=== PATIENT | male | born 1940 | race Caucasian/White ===

== ENCOUNTER 2020-11-11 20:10 | Observation (INO) | payer MEDICARE, SELFPAY ==
--- NOTE | ~2020-11-11 | CT_ITS ---
EXAMINATION: CT chest abdomen pelvis w con EXAM DATE: 11/11/2020 21:53 INDICATION: Trauma, chest and abdominal pain. TECHNIQUE: Spiral CT of the chest, abdomen and pelvis was performed following intravenous injection o f 100 mL Omnipaque 350. Axial, coronal and sagittal images were reviewed. Coronal maximum intensity pixel images of chest reviewed. The dose-length product (DLP) for this examination was 1160.10 mGy- cm. The exposure was tailored according to patient size (auto mA exposure control), and iterative re construction (ASIR) was used as additional dose reduction technique. There is no prior study for olu porter. FINDINGS: CHEST: Basilar and dependent subsegmental atelectasis. There are no pleural or pericardial effusion s. Tracheobronchial tree is patent. There is no mediastinal, hilar or axillary lymphadenopathy. There is no pneumothorax. Heart normal in size. There is mild to moderate coronary arterial calc ification, arterial sclerosis. ABDOMEN PELVIS: The liver, spleen, adrenal glands and pancreas are unremarkable. There are gallstone s within an otherwise unremarkable gallbladder. No evidence of obstructive biliary disease. Portal and splenic veins are patent. Kidneys enhance symmetrically. There is no hydronephrosis. There is a 4 cm cyst in the midpole of the left kidney. The prostate is unremarkable. The bladder is unremark able. There is no retroperitoneal or pelvic lymphadenopathy. There is large left inguinal hernia con taining nonobstructed descending/sigmoid colon. The appendix is not positively visualized. There is no pericecal inflammatory change to suggest appe ndicitis. The stomach and small bowel are unremarkable. There is moderate scattered colonic diverti culosis. There is no adjacent inflammatory change to suggest diverticulitis. There is expected amoun t of colonic stool. No free intraperitoneal gas. There are acute mildly displaced right 5th-9th r ib fractures laterally. There are acute nondisplaced right 8th-10th rib fractures posteriorly. There is moderate upper lumbar levoscoliosis. IMPRESSION: 1. Acute right 5th-10th rib fractures. 2. Large left inguinal hernia containing nonobstructed sigmoid colon. 3. Moderate upper lumbar levoscoliosis. 4. Moderate scattered colonic diverticulosis. 5. Cholelithiasis. 6. Bilateral subsegmental atelectasis. Reviewed, dictated and finalized at location A. ENGINEER
--- NOTE | ~2020-11-11 | XR_ITS ---
EXAMINATION: XR elbow RT min 3V EXAM DATE: 11/11/2020 21:46 INDICATION: Initial encounter following injury, with pain of the right elbow. TECHNIQUE: Right elbow frontal, lateral with flexion, and oblique projections obtained and reviewed. There is no prior study for comparison. FINDINGS: There is acute nondisplaced right radial head closed posttraumatic fracture. This finding h as been indicated, marked on the examination for review, clinical correlation. There is an elbow asia int hemarthrosis. No dislocation. IMPRESSION: Acute right radial head fracture. Reviewed, dictated and finalized at location A. ER AND CELLOPHANER MACHINE
--- NOTE | ~2020-11-11 | CT_ITS ---
EXAMINATION: CT brain wo con, CT cervical spine wo con EXAM DATE: 11/11/2020 20:41 INDICATION: Fall, head injury. TECHNIQUE: Spiral CT of the head was performed without contrast. Axial, coronal and sagittal images were reviewed. Spiral CT of the cervical spine was performed without contrast. Axial images were rev iewed. Coronal and sagittal reformatted images were also reviewed. The dose-length product (DLP) fo r this examination was 1362.00 (accession [id number]), 237.08 (accession [id number]) mGy-cm. The exposure was tailored according to patient size, and iterative reconstruction (ASIR) was used as additional dose reduction technique. There is no prior study for comparison. FINDINGS: HEAD CT: There is no acute intraparenchymal hemorrhage. No evidence of intraparenchymal brain mass l esion. No evidence of acute infarction. There is mild periventricular and subcortical hypodensity, n onspecific but probably related to small vessel ischemic disease. There is moderate prominence of t he sulci and ventricles related to cerebral atrophy. There is intracranial carotid arteriosclerosis . There is no mass effect or midline shift. There is no obstructive hydrocephalus suspected. There are no extra-axial collections. There are no acute calvarial fractures. Patient has had bilateral ocular lens surgery. Soft tissue is unremarkable. Mild mucoperiosteal thickening. CERVICAL CT: There is no evidence of acute cervical fracture. The odontoid process is intact. Pre- dens space is normal. Prevertebral soft tissue is normal. There are no soft tissue abnormalities id entified. There is no disc space widening or traumatic vertebral body subluxation suspected. Modera te to severe loss of the disc heights at C5-6 and 6-7, moderate at C4-5. There is overall moderate ce rvical arthropathy. A detailed level by level evaluation of spondylosis can be added as addendum if requested. IMPRESSION: 1. No acute intracranial findings or cervical fracture. 2. Age-related intracranial findings. 3. Cervical spondylosis. Reviewed, dictated and finalized at location A. DE POLISHER IMPRESSION: 1. No acute intracranial findings or cervical fracture. 2. Age-related intracranial findings. 3. Cervical spondylosis.
--- NOTE | ~2020-11-11 | XR_ITS ---
EXAMINATION: [id number] EXAM DATE: 11/11/2020 20:54 INDICATION: Initial encounter following injury, with pain of the right ribs. TECHNIQUE: Frontal projection of the upper right ribs, frontal projection of the lower right ribs, ob lique projection of the right ribs, frontal and lateral chest x-ray(s) for interpretation. There is no prior study for comparison. FINDINGS: There are acute right 5th through 9th rib fractures with mild displacement. Acute posttraum atic findings. No confluent consolidation, pneumothorax or pleural effusion suspected. There is aorti c arteriosclerosis. Mild to moderate thoracic spondylosis. IMPRESSION: 1. Right 5th-9th mildly displaced acute rib fractures. Reviewed, dictated and finalized at location A. CTOR OF PROFESSIONAL SERVICES
[2020-11-11 20:10] VITALS: BP 145/74; PULSE 75; RESP 16; TEMP 36.5; O2SAT 97
[2020-11-11 20:28] LABS: Basophils Percent Auto 0.4 % (0.2-1.2); Eosinophils Absolute Auto 0.3 K/mm3 (0-0.3); Eosinophils Percent Auto 3.8 % (0-4.4); Hematocrit 36.3 % (42.0-52.0); Hemoglobin 12.4 g/dL (14.0-18.0); Immature Granulocyte Absolute 0.05 K/mm3 (0.00-0.031); Immature Granulocyte Percent A 0.7 % (0-0.5); Lymphocytes Absolute Auto 1.96 K/mm3 (0.9-3.2); Lymphocytes Percent Auto 26.5 % (18.3-44.2); Mean Corpuscular HGB Conc 34.2 g/dl (32-36); Mean Corpuscular Hemoglobin 34.6 pg (26-34); Mean Corpuscular Volume 101.4 fl (80-100); Mean Platelet Volume 8.7 fl (7.4-10.4); Monocytes Absolute Auto 0.6 K/mm3 (0.1-0.6); Monocytes Percent Auto 8.5 % (2.6-8.5); Neutrophils Absolute Auto 4.5 K/mm3 (1.3-6.7); Neutrophils Percent Auto 60.1 % (45.5-73.1); Platelet Count Result 144 k/mm3 (150-375); Red Blood Count 3.58 M/mm3 (4.6-6.20); Red Cell Distribution Width 12.8 % (11.5-14.5); White Blood Count 7.4 K/mm3 (4.5-10.0)
[2020-11-11 20:54] VITALS: BP 115/77; PULSE 65
[2020-11-11 20:55] VITALS: BP 107/78; PULSE 76
--- NOTE | 2020-11-11 21:06 | ED.FALL ---
HPI - Fall General Chief Complaint: Fall Stated Complaint: fall/ rib pain Time Seen by Provider: 11/11/20 20:57 Source: RN notes reviewed History of Present Illness HPI Narrative: Patient presents emergency department from home for a fall. Patient states he had gotten up and was turning when he let go of his walker and fell landing on his right side of his chest he notes pain in his right chest worse with inspiration also notes skin tears over his right elbow and hand states he is unsure of his last tetanus shot denies being on any blood thinners denies striking his head or any loss of consciousness denies any fevers or chills abdominal pain nausea vomiting or any other symptoms Related Data Home Medications Medication Instructions Recorded Confirmed carbidopa ER 50 mg-levodopa 200 mg 1 tablet PO QID 10/05/19 tablet,extended release hydrochlorothiazide 12.5 mg tablet 12.5 mg PO DAILY 10/05/19 quetiapine 25 mg tablet 25 mg PO DAILY tablet 10/05/19 ropinirole 1 mg tablet 1 mg PO QID tablet 10/05/19 Allergies Allergy/AdvReac Type Severity Reaction Status Date / Time No Known Allergies Allergy Unverified 07/12/19 06:42 Review of Systems Review of Systems: Narrative: Gen.: Denies fevers or chills Eyes: Denies eye pain or visual change ENT: Denies congestion Respiratory: Denies shortness of breath or cough CV: Reports chest pain denies palpitations GI: Denies abdominal pain nausea, emesis or diarrhea Musculoskeletal: See HPI Neuro: Denies numbness, tingling, weakness or focal weakness Skin: Reports abrasions Except as documented, all other systems reviewed and negative PMFSH Past Medical History Medical History (Updated 11/11/20 @ 22:52 by Parish Lord DO) Parkinsons disease Family History Family History (Updated 03/08/18 @ 12:40 by DOCTOR UNKNOWN) Sibling Family history of cardiovascular disease Social History Social History Smoking status: Never smoker Second hand tobacco smoke exposure: No Alcohol intake: never Exam Narrative: Exam Narrative: APPEARANCE: Well appearing, no apparent distress, well-nourished. HEENT: normocephalic atraumtaic. No facial tenderness EYES: PERRL NECK: C-collar present supple. No midline tenderness to palpation. RESPIRATORY: No respiratory distress. Clear to auscultation bilaterally CARDIOVASCULAR: Regular rate and rhythm without murmurs rubs or gallops. Chest: Tender palpation of the right anterior lateral chest wall ABDOMINAL: Soft, nontender, nondistended, no rebound or guarding MUSCULOSKELETAl: Moves all extremities. No tenderness to palpation of left upper extremity and bilateral lower extremities. No clubbing cyanosis or edema tender palpation of her right elbow full range of motion no tenderness right wrist or elbow radial pulse 2+ neurovascular intact Back: No midline thoracic or lumbar tenderness to palpation Pelvis: Stable, nontender NEURO: Awake and alert ?3. Follows commands. Speech normal. No focal deficits. SKIN:: Warm, dry. Superficial skin tears of right posterior elbow right dorsal hand and wrist no active bleeding or signs of infection Course Course Emergency Course: Patient states he currently resides in assisted living normally walks with a walker Discussed with Dr. Barrios presentation work-up agrees with admission at this time Discussed with patient and family results of workup and diagnosis. Discussed need for admission. Patient and family understand and agree to current treatment plan Vital Signs Vital signs: Vital Signs Temperature 97.7 F 11/11/20 20:10 Pulse Rate 75 11/11/20 20:10 Respiratory Rate 16 11/11/20 20:10 Blood Pressure 145/74 H 11/11/20 20:10 Pulse Oximetry 97 11/11/20 20:10 Temperature 97.7 F 11/11/20 20:10 Pulse Rate 83 11/11/20 21:15 Respiratory Rate 16 11/11/20 21:15 Blood Pressure 136/91 H 11/11/20 21:15 Pulse Oximetry
[2020-11-11 21:15] VITALS: BP 136/91; PULSE 83; RESP 16; O2SAT 96
[2020-11-11 21:18] LABS: Add Urine Microscopic? YES; Appearance Urine Clear (Clear); Bilirubin Urine Negative (Negative); Blood Urine Negative (Negative); Color Urine Yellow (Yellow); Glucose Urine UA Negative (Negative); Ketones Urine Trace mg/dL (Negative); Leukocyte Esterase Ur Negative LEU/UL (Negative); Mucus Urine Rare /lpf; Nitrate Urine Negative (Negative); Protein Urine Negative (Negative); Specific Grav Ur 1.015 (1.001-1.035); Urobilinogen Urine Negative mg/dL (<2.0); WBC Urine 0-3 /hpf
[2020-11-11 21:23] LABS: Albumin Level 3.9 g/dL (3.5-5.1); Alkaline Phosphatase 105 U/L (38-126); Anion Gap 4 mmol/L (8-16); Aspartate Amino Transferase 30 U/L (17-59); Bilirubin,Total 0.5 mg/dL (0.2-1.3); Blood Urea Nitrogen 31 mg/dL (9-20); Calcium 9.1 mg/dL (8.4-10.2); Carbon Dioxide 33 mmol/L (22-30); Chloride 102 mmol/L (98-107); Estimated CRCL calculation 50 ml/min; Estimated Glomerular Filt Rate > 60; Glucose 93 mg/dL (75-110); Potassium 4.2 mmol/L (3.4-5.0); Sodium 139 mmol/L (137-145)
[2020-11-11 21:24] LABS: Alanine Aminotransferase < 6 U/L (4-50)
[2020-11-11] MEDS: TETANUS,DIPHTHERIA,AC PERTUSSIS ADULT (0.5 ML) BOOSTRIX IM (21:56)
--- NOTE | 2020-11-11 23:01 | PM.IMHP ---
H&P: HPI History of Present Illness Date/Time: 11/11/20 23:01 Chief complaint: Multiple right rib fractures, Narrative: Jg Carrera is a 80 year old male from assisted living care facility [facility] with past medical history of Parkinson's disease who presents to the ED with complaints of fall, chest pain, right elbow pain. Was using his walker today and had a mechanical fall. His daughter was bedside in the ER. Patient had just received pain medication and could not provide much history. He lives in assisted living facility in [facility] in the unit that may have more nursing care than a typical assisted living facility. He otherwise is independent with a walker and has nursing help with medications. Patient endorses right chest pain and elbow pain and left face pain. He denies fever, chills, nausea, vomiting, diarrhea, lightheadedness, dizziness. In the ED: CT head and neck negative, chest x-ray right 5th to 10th mildly displaced rib fractures, acute right hip radial head fracture. Bilateral subsegmental atelectasis. Patient was given incentive spirometer and pain control. EKG showed normal sinus rhythm rate 73. Patient admitted for observation for probable rehab placement and pain control for acute rib fractures and nondisplaced humeral head fracture. Review of Systems Review of Systems: Narrative: Constitutional: No Fever, No Chills, No Night Sweats, No Fatigue, No Malaise ENT/Mouth: No Hearing Changes, No Ear Pain, No Nasal Congestion, No Sinus Pain, No Hoarseness, No sore throat, No Rhinorrhea, No Swallowing Difficulty. Eyes: No Eye Pain, No Redness, No Vision Changes Cardiovascular: No Palpitations, No Dyspnea on Exertion, No Orthopnea, No Claudication, No Edema. Endorses chest pain. Respiratory: No Cough, No Sputum, No Wheezing. Endorses dyspnea. Gastrointestinal: No Nausea, No Vomiting, No Diarrhea, No Constipation, No Abdominal Pain, No Heartburn, No Hematochezia, No Melena Genitourinary: No Dysuria, No Urinary Frequency, No Hematuria, No Urinary Incontinence, No Urgency Musculoskeletal: Pain in many joints after fall. Skin: No Skin Lesions, No Pruritis, No Hair Changes Neuro: No Weakness, No Numbness, No Paresthesias, No Loss of Consciousness, No Syncope, No Dizziness. Endorses mild headache. Psych: No Anxiety/Panic, No Depression, No Insomnia Heme: No Bruising, No Bleeding Lymph: No Adenopathy Endocrine: No Polyuria, No Polydipsia, No Temperature Intolerance [facility] Past Medical History Medical History Constipation Essential hypertension Insomnia Iron deficiency anemia Parkinsons disease Surgical History Surgical History History of bilateral knee replacement History of right shoulder replacement Family History Family History Sibling Family history of cardiovascular disease Social History Social History Social History: Daughter lives locally Smoking status: Never smoker Second hand tobacco smoke exposure: No Alcohol intake: never Substance use: never Living arrangements: assisted living Additional living arrangements comments: [facility] Occupation/Education: retired Gender identity (if verbalized by the patient): Male Spiritual care concerns: No Meds Home Medications and Allergies Home Medications Medication Instructions Recorded Confirmed Type carbidopa ER 50 mg-levodopa 200 mg 1 tablet PO QID 10/05/19 History tablet,extended release hydrochlorothiazide 12.5 mg tablet 12.5 mg PO DAILY 10/05/19 History quetiapine 25 mg tablet 25 mg PO DAILY tablet 10/05/19 History potassium chloride 20 mEq 20 meq PO DAILY #30 tablet 05/15/20 Rx tablet,extended release acetaminophen 650 mg PO Q12H 11/12/20 11/12/20 Hi
--- NOTE | 2020-11-11 23:03 | PC.NURSE ---
pt does not wish to use sling at this time. states rib less painful if arm propped on pillow
--- NOTE | 2020-11-11 23:14 | PC.NURSE ---
Pt's daughter Kaitlin Pritchett left her number for any questions on admission. [phone]
[2020-11-11 23:23] VITALS: BP 105/86; PULSE 79; RESP 16
[2020-11-11 23:26] VITALS: O2SAT 97
[2020-11-12 00:14] VITALS: BP 106/67; PULSE 81; RESP 14; O2SAT 96
--- NOTE | 2020-11-12 00:25 | ADMGEN ---
This patient, Jg Carrera, was admitted to Medical Room 342-01. Patient/family oriented to hospital policies and general routines including ID bracelet, bed and alarms, visiting hours, pain management, procedures, bathroom and other care routines, personal items, smoking policy, room service/diet, and visiting hours. Information on how to activate the Rapid Response Team has been discussed. Patient/Family are encouraged to report perceived risks to care and to ask questions if they do not understand what they are told or what they should do.
[2020-11-12 00:56] VITALS: BMI 23.8
[2020-11-12] MEDS: HYDROcodone/acetaminophen (*CRX) 5-325 MG TABLET 1 TAB PO ×4 (00:58→20:07)
[2020-11-12 06:00] VITALS: BP 143/90; PULSE 63; RESP 12; TEMP 36.6; O2SAT 99
[2020-11-12] MEDS: FERROUS SULFATE 324 MG TABLET PO (09:35)
[2020-11-12] MEDS: FAMOTIDINE 20 MG TABLET PO (09:35)
[2020-11-12] MEDS: DOCUSATE SODIUM 100 MG CAPSULE PO ×2 (09:35→17:25)
[2020-11-12] MEDS: CYANOCOBALAMIN 1,000 MCG TABLET 1000 MCG PO (09:35)
[2020-11-12] MEDS: POTASSIUM CHLORIDE 20 MEQ TABLET.ER PO (09:35)
[2020-11-12] MEDS: CARBIDOPA/LEVODOPA 25/100 MG CR TABLET 2 TABLET PO ×2 (09:35→17:24)
[2020-11-12] MEDS: rOPINIRole HCL 1 MG TABLET 4 MG PO ×4 (09:36→20:07)
[2020-11-12] MEDS: QUEtiapine FUMARATE 25 MG TABLET 50 MG PO (09:36)
[2020-11-12] MEDS: SENNOSIDES 8.6 MG TABLET PO ×2 (09:36→17:25)
[2020-11-12] MEDS: hydroCHLOROthiazide 12.5 MG CAPSULE PO (09:36)
[2020-11-12] MEDS: SERTRALINE HCL 25 MG TABLET PO (09:36)
--- NOTE | 2020-11-12 11:59 | PM.CNOR ---
Assessment and Plan Additional Plan Patient has a nondisplaced fracture of the right radial head. This will be treated nonsurgically. We will place the patient into an arm sling. He may move the fingers and wrist as tolerated. Patient was advised he is not use the hand for daily activities such as feeding or bathing at this point. Absolutely no weight-bearing on the right arm at this point. This fracture will take about 6-8 weeks to heal. There is no treatment needed for his rib fractures. These will heal on their own as well. Patient may be discharged when medically ready. He can follow up with us in approximately 10 days. History of Present Illness HPI Consult date: 11/12/20 Chief complaint: Multiple right rib fractures, Narrative: 80y/o who tripped over a walker yesterday. He is brought to the emergency room complaining of pain in the right elbow in the right ribs. X-rays right elbow were taken showing nondisplaced fracture of the radial head. No other abnormalities noted. He did have a CT done of his chest which showed multiple rib fractures on the right side as well. Patient is complaining of pain to the right elbow. He is having no pain or symptoms in the right wrist or the right shoulder. [facility] Past Medical History Medical History Constipation Essential hypertension Insomnia Iron deficiency anemia Parkinsons disease Surgical History Surgical History History of bilateral knee replacement History of right shoulder replacement Family History Family History Sibling Family history of cardiovascular disease Social History Social History Social History: Daughter lives locally Smoking status: Never smoker Second hand tobacco smoke exposure: No Alcohol intake: never Substance use: never Living arrangements: assisted living Additional living arrangements comments: [facility] Occupation/Education: retired Gender identity (if verbalized by the patient): Male Spiritual care concerns: No Meds Home Medications and Allergies Home Medications Medication Instructions Recorded Confirmed Type carbidopa ER 50 mg-levodopa 200 mg 2 tablet PO BID 10/05/19 11/12/20 History tablet,extended release hydrochlorothiazide 12.5 mg tablet 12.5 mg PO DAILY 10/05/19 11/12/20 History quetiapine 25 mg tablet 25 mg PO QPM tablet 10/05/19 11/12/20 History potassium chloride 20 mEq 20 meq PO DAILY #30 tablet 05/15/20 11/12/20 Rx tablet,extended release acetaminophen 650 mg PO Q12H 11/12/20 11/12/20 History cholecalciferol (vitamin D3) 25 mcg PO QMWF 11/12/20 11/12/20 History [Vitamin D3] cyanocobalamin (vitamin B-12) 1,000 mcg PO DAILY 11/12/20 11/12/20 History [Vitamin B-12] docusate sodium 100 mg PO BID 11/12/20 11/12/20 History famotidine 20 mg PO DAILY 11/12/20 11/12/20 History ferrous sulfate 325 mg PO DAILY 11/12/20 11/12/20 History melatonin 2 mg PO HS PRN 11/12/20 11/12/20 History quetiapine 50 mg PO BID 11/12/20 11/12/20 History ropinirole 4 mg PO QID 11/12/20 11/12/20 History sennosides [senna] 8.6 mg PO BID 11/12/20 11/12/20 History sertraline 25 mg PO DAILY 11/12/20 11/12/20 History Allergies Allergy/AdvReac Type Severity Reaction Status Date / Time No Known Allergies Allergy Verified 11/12/20 00:55 Vital Signs Vital Signs - 24 hr 11/11/20 20:10 11/11/20 20:54 11/11/20 20:55 Temperature 36.5 C Pulse Rate 75 65 76 Respiratory Rate 16 Blood Pressure 145/74 H 115/77 107/78 Pulse Oximetry 97 11/11/20 21:15 11/11/20 23:23 11/11/20 23:26 Temperature Pulse Rate 83 79 Respiratory Rate 16 16 Blood Pressure 136/91 H 105/86 Pulse Oximetry 96 97 11/12/20 00:14 11/12/20 06:00 Temperature 36.6 C Pulse Ra
--- NOTE | 2020-11-12 12:10 | PM.IMPN ---
Progress Note: A&P Assessment and Plan (1) Multiple fractures of ribs, right side, initial encounter for closed fracture: Code(s): S22.41XA - Multiple fractures of ribs, right side, initial encounter for closed fracture Status: Acute Assessment and Plan: pain control: Tylenol, [place] supportive care, patient's fractures are nonsurgical incentive spirometer q.1 hour while awake F/u with PCP (2) Closed fracture of head of right radius: Qualifiers: Encounter type: initial encounter Fracture alignment: nondisplaced Qualified Code(s): S52.124A - Nondisplaced fracture of head of right radius, initial encounter for closed fracture Code(s): S52.121A - Displaced fracture of head of right radius, initial encounter for closed fracture Status: Acute Assessment and Plan: closed nondisplaced fracture of right radial head. Orthopedic Surgery consulted from ED. Appreciate recommendations Supportive care. Patient will need Sling. No weight-bearing on the right arm at this point per Ortho PT and OT to evaluate and treat Plan is to discharge back to [facility], likely tomorrow pending covid testing (for placement) F/u with Ortho in 10 days (3) Avulsion of skin of right forearm: Qualifiers: Encounter type: initial encounter Qualified Code(s): S51.801A - Unspecified open wound of right forearm, initial encounter Code(s): S51.801A - Unspecified open wound of right forearm, initial encounter Status: Acute Assessment and Plan: -supportive care Additional Plan # other chronic conditions Parkinson's disease: Continue Sinemet, Seroquel, Requip, Zoloft hypertension: BP 140s sys. Continue hydrochlorothiazide chronic iron deficient anemia: Continue ferrous sulfate constipation: Continue docusate, senna GERD: Continue Pepcid supplements vitamin-D, vitamin B12 insomnia: Continue melatonin p.r.n. Subjective Date/time seen: 11/12/20 12:10 Interval history: Patient is a 80 yo M with history of Parkinsons, ELLIOT, HTN who is seen in follow up for right radial fracture and multiple rib fractures after sustaining a fall at his [place]. Patient states he feels okay today. He denies any pain with out movement of his right arm/hand. Pain gets slightly worse in certain positions. He reports full sensation in right arm/hand distal to facture. No other complaints. Denies f/c/s, dizziness, lightheadedness, cp/palpitations, sob/cough, n/v/d/c, abd pain, dysuria, calf pain/swelling. Review of Systems Review of Systems: All systems reviewed & are unremarkable except as noted in HPI and below Exam Narrative: Exam Narrative: General: Patient resting supine in bed in no acute distress. Elderly gentlemen. HEENT: Normocephalic, EOMI, oral mucosa moist. Cardiovascular: Rate and rhythm are regular. No notable murmur, rub, or gallop. Respiratory: Lungs clear to auscultation anterolateral lung ledesma. Non-labored breathing. Abdomen: Soft, non-tender, non-distended, bowel sounds present. Extremities: Peripheral pulses intact. No edema. NVI B/l UE. avulsion of skin noted with tegaderm placed over skin tear distal upper extremity; surrounding ecchymoses noted. Neuro: No focal neurological deficits. Speech is clear. Objective Data Vital Signs Vital Signs: Last Vital Signs Temp 97.9 F 11/12/20 06:00 Pulse 63 11/12/20 06:00 Resp 12 11/12/20 06:00 BP 143/90 H 11/12/20 06:00 Pulse Ox 99 11/12/20 06:00 Intake/Output Intake/Output: Intake & Output 11/09/20 11/10/20 11/11/20 11/12/20 23:59 23:59 23:59 23:59 Intake Total 100 240 Output Total 850 Balance 100 -610 Meds/Results Medications: Active Medications Generic Name Dose Route Start Last Admin Trade Name Freq PRN Reason Stop Dose Admin Acetaminophen 650 mg 11/12/20 07:52
[2020-11-12 14:00] VITALS: BP 120/58; PULSE 72; RESP 16; TEMP 36.5; O2SAT 96
[2020-11-12] MEDS: QUEtiapine FUMARATE 25 MG TABLET 75 MG PO (17:25)
[2020-11-12 19:45] VITALS: BP 115/77; PULSE 86; RESP 14; TEMP 36.9; O2SAT 96
[2020-11-13 05:49] VITALS: BP 115/67; PULSE 71; RESP 14; TEMP 36.8; O2SAT 97
[2020-11-13 06:23] LABS: Anion Gap 3 mmol/L (8-16); Blood Urea Nitrogen 22 mg/dL (9-20); Calcium 8.7 mg/dL (8.4-10.2); Carbon Dioxide 31 mmol/L (22-30); Chloride 103 mmol/L (98-107); Estimated CRCL calculation 50 ml/min; Estimated Glomerular Filt Rate > 60; Glucose 95 mg/dL (75-110); Magnesium 1.6 mg/dL (1.6-2.3); Potassium 3.6 mmol/L (3.4-5.0); Sodium 137 mmol/L (137-145)
[2020-11-13] MEDS: POTASSIUM CHLORIDE 20 MEQ TABLET.ER PO (08:30)
[2020-11-13] MEDS: rOPINIRole HCL 1 MG TABLET 4 MG PO (08:31)
[2020-11-13] MEDS: hydroCHLOROthiazide 12.5 MG CAPSULE PO (08:31)
[2020-11-13] MEDS: FERROUS SULFATE 324 MG TABLET PO (08:31)
[2020-11-13] MEDS: DOCUSATE SODIUM 100 MG CAPSULE PO (08:31)
[2020-11-13] MEDS: CARBIDOPA/LEVODOPA 25/100 MG CR TABLET 2 TABLET PO (08:31)
[2020-11-13] MEDS: CYANOCOBALAMIN 1,000 MCG TABLET 1000 MCG PO (08:31)
[2020-11-13] MEDS: CHOLECALCIFEROL 1,000 UNITS TABLET 1000 UNITS PO (08:31)
[2020-11-13] MEDS: SENNOSIDES 8.6 MG TABLET PO (08:31)
[2020-11-13] MEDS: FAMOTIDINE 20 MG TABLET PO (08:32)
[2020-11-13] MEDS: QUEtiapine FUMARATE 25 MG TABLET 50 MG PO (08:32)
[2020-11-13] MEDS: SERTRALINE HCL 25 MG TABLET PO (08:32)
--- NOTE | 2020-11-13 09:23 | PM.IMPN ---
Progress Note: A&P Assessment and Plan (1) Multiple fractures of ribs, right side, initial encounter for closed fracture: Code(s): S22.41XA - Multiple fractures of ribs, right side, initial encounter for closed fracture Status: Acute Assessment and Plan: pain control: Tylenol. Use [place] sparingly and only if Tylenol provides no relief supportive care, patient's fractures are nonsurgical incentive spirometer q.1 hour while awake F/u with PCP Patient to be discharge today or tomorrow pending COVID results (for placement) (2) Closed fracture of head of right radius: Qualifiers: Encounter type: initial encounter Fracture alignment: nondisplaced Qualified Code(s): S52.124A - Nondisplaced fracture of head of right radius, initial encounter for closed fracture Code(s): S52.121A - Displaced fracture of head of right radius, initial encounter for closed fracture Status: Acute Assessment and Plan: closed nondisplaced fracture of right radial head. Orthopedic Surgery consulted from ED. Appreciate recommendations Supportive care. Patient will need Sling. No weight-bearing on the right arm at this point per Ortho PT and OT to evaluate and treat Plan is to discharge back to [facility] likely tomorrow pending covid testing (for placement) F/u with Ortho in 10 days (3) Avulsion of skin of right forearm: Qualifiers: Encounter type: initial encounter Qualified Code(s): S51.801A - Unspecified open wound of right forearm, initial encounter Code(s): S51.801A - Unspecified open wound of right forearm, initial encounter Status: Acute Assessment and Plan: -supportive care Additional Plan # other chronic conditions Parkinson's disease: Continue Sinemet, Seroquel, Requip, Zoloft hypertension: BP 140s sys. Continue hydrochlorothiazide chronic iron deficient anemia: Continue ferrous sulfate constipation: Continue docusate, senna GERD: Continue Pepcid supplements vitamin-D, vitamin B12 insomnia: Continue melatonin p.r.n. Subjective Date/time seen: 11/13/20 09:23 Interval history: Patient is a 80 yo M with history of Parkinsons, ELLIOT, HTN who is seen in follow up for right radial fracture and multiple rib fractures after sustaining a fall at his AL. Patient states he feels okay today but occasional rib and right elbow pain with big movements. He denies any pain without movement of his right arm/hand. He reports full sensation in right arm/hand distal to facture. No other complaints. Denies f/c/s, dizziness, lightheadedness, cp/palpitations, sob/cough, n/v/d/c, abd pain, dysuria, calf pain/swelling. Review of Systems Review of Systems: All systems reviewed & are unremarkable except as noted in HPI and below Exam Narrative: Exam Narrative: General: Patient resting supine in bed in no acute distress. Elderly gentlemen. HEENT: Normocephalic, EOMI, oral mucosa moist. Cardiovascular: Rate and rhythm are regular. No notable murmur, rub, or gallop. Respiratory: scattered, rhonchi anterolateral lung ledesma; cleared with cough. Non-labored breathing. Abdomen: Soft, non-tender, non-distended, bowel sounds present. Extremities: Peripheral pulses intact. No edema. NVI B/l UE. Avulsion of skin noted with tegaderm placed over skin tear distal upper extremity; surrounding ecchymoses noted. Neuro: No focal neurological deficits. Speech is clear. Objective Data Vital Signs Vital Signs: Vital Signs - 24 hr 11/12/20 14:00 11/12/20 19:45 11/13/20 05:49 Temperature 97.7 F 98.4 F 98.2 F Pulse Rate 72 86 71 Respiratory Rate 16 14 14 Blood Pressure 120/58 L 115/77 115/67 Pulse Oximetry 96 96 97 Intake/Output Intake/Output: Intake & Output 11/10/20 11/11/20 11/12/20 11/13/20 23:59 23:59 23:59 23:59 Intake Total 100 1080 220 Output To
--- NOTE | 2020-11-13 11:10 | PM.DS ---
DS: Admitting Diagnosis Admitting Diagnosis Admitting Diagnosis: Right radial head fracture, multiple rib fracture; s/p fall DS: Discharge Diagnosis Discharge Diagnosis (1) Multiple fractures of ribs, right side, initial encounter for closed fracture: Code(s): S22.41XA - Multiple fractures of ribs, right side, initial encounter for closed fracture Status: Acute Assessment and Plan: pain control: Tylenol. Use [place] sparingly and only if Tylenol provides no relief supportive care, patient's fractures are nonsurgical incentive spirometer q.1 hour while awake F/u with PCP Patient to be discharge today; COVID test pending at discharge (okay for discharge per [facility]) (2) Closed fracture of head of right radius: Qualifiers: Encounter type: initial encounter Fracture alignment: nondisplaced Qualified Code(s): S52.124A - Nondisplaced fracture of head of right radius, initial encounter for closed fracture Code(s): S52.121A - Displaced fracture of head of right radius, initial encounter for closed fracture Status: Acute Assessment and Plan: closed nondisplaced fracture of right radial head. Orthopedic Surgery consulted from ED. Appreciate recommendations Supportive care. Patient will need Sling. No weight-bearing on the right arm at this point per Ortho PT and OT to evaluate and treat Plan is to discharge back to [facility] F/u with Ortho in 10 days (3) Avulsion of skin of right forearm: Qualifiers: Encounter type: initial encounter Qualified Code(s): S51.801A - Unspecified open wound of right forearm, initial encounter Code(s): S51.801A - Unspecified open wound of right forearm, initial encounter Status: Acute Assessment and Plan: supportive care DS: Summary Hospital Course Reason for hospitalization: Right radial head fracture, multiple rib fractures, s/p fall Hospital Course: Date of arrival: 11/11/20 Date of discharge: 11/13/20 Patient is a 80 year old male from assisted living care facility [facility] with past medical history of Parkinson's disease who presented to the ED on 11/11 with complaints of fall, chest pain, right elbow pain. While in the ED, patient was found to have multiple rib fractures and a right radial head fracture on xray imaging. Dr. Martel (Orthopedic Surgery) was consulted from the ED for further input/management. Patient admitted under this setting. Please see H&P for further details. Patient was admitted to the hospitalist service for further management/treatment for above fractures. Patient was evaluated by Orthopedic Surgery and it was felt that this would best be treated conservatively with a sling for his arm. It was recommended that patient to have a no weight bearing status on that arm. Patient obtained PT/OT evaluations during stay. Care coordination followed patient and discussed disposition with patient and family and they wished for him to return back to his assisted living facility. Plan was for discharge back to assisted living and to follow up with his PCP and Dr. Martel the following week. He was instructed to use tylenol as needed for pain and only use [place] for breakthrough severe pain. Patient's VSS remained stable and he was afebrile during stay. Patient and family were agreeable and comfortable with plan for discharge. Patient hemodynamically stable and in improved condition for discharge on 11/13 Status at Discharge Overall status at discharge: patient is progressing back to baseline Time Spent with Patient Time attestation: Total time spent providing and/or coordinating discharge services: Time spent: Greater than 30 minutes Exam Narrative: Exam Narrative: General: Patient resting supine in bed in no acute distress. Elderly gentlemen. HEENT: Normocephalic,
--- NOTE | 2020-11-13 11:20 | PCPTNOTE ---
Attempted therapy session. Pt refused stating I've been moving my damn legs all day! I don't need to walk or move! Reassured Pt we were there to help him get stronger. Pt continued to be combative and refused therapy. Asked Pt if there was anything he needed, he requested orange juice, cleared it with nurse and got him one. Pt was pleasant and said Thank you but I'm still not getting up.
[2020-11-13 12:25] LABS: SARS-CoV-2 RNA PCR Negative
--- NOTE | 2020-11-13 12:39 | PC.NURSE ---
Report given to nurse at [facility]. No further questions. Patient is ready for discharge after lunch and when ambulance can arrive.
--- NOTE | 2020-11-13 13:24 | PCPTNOTE ---
Attempted therapy session, Pt refused. Pt stated I have waled to and from the bathroom several times today and do not need to walk or move right now. Explained the importance of therapy and getting up to Pt, he agreed and said Yes I know it's good and have been up several times. I don't want to walk right now. Will continue per POC.
[2020-11-13 14:00] VITALS: BP 118/68; PULSE 70; RESP 16; TEMP 36.7; O2SAT 98
== END 2020-11-13 15:49 ==
LOC: ANHED 22:52 → ANH3MED 23:11
PROVIDERS: Emergency Medicine Emergency Medical Services; Physician Assistant; Admitting Provider Student in an Organized Health Care Education/Training Program; Emergency Provider Emergency Medicine; PCP Family Medicine; Visit Provider Internal Medicine
DX: S22.41XA Multiple fractures of ribs, right side, initial encounter for closed fracture (principal); S52.121A Displaced fracture of head of right radius, initial encounter for closed fracture; Z20.828 Contact with and (suspected) exposure to other viral communicable diseases; W19.XXXA Unspecified fall, initial encounter; G20 Parkinson's disease; I10 Essential (primary) hypertension; Z96.653 Presence of artificial knee joint, bilateral; Z96.611 Presence of right artificial shoulder joint
CPT/HCPCS: 36415; 70450; 71101; 71260; 72125; 73080; 74177; 80048; 80053; 81001; 83735; 85025; 87635; 90471; 90715; 96365; 97162; 97165; 99285; A4565; A9270; C9803; G0378; J0131; Q9967; U0003

== ENCOUNTER 2021-01-18 15:27 | Emergency (ER) | payer MEDICARE, SELFPAY ==
--- NOTE | 2021-01-18 15:32 | ED.GENADULT ---
HPI - General Adult General Chief complaint: Unspecified Stated complaint: stated dehydration Source: patient, EMS, RN notes reviewed, old records reviewed and other (Staff at nursing facility) History of Present Illness HPI narrative: 80-year-old male presents to emergency department via EMS from [facility] for episodes of spitting up this afternoon, per patient. Per nursing staff at facility, patient started throwing up clear liquid and phlegm, has been drinking less recently. Staff at nursing facility concerned about dehydration. Started on cipro on the for a urinary tract infection. Related Data Home Medications Medication Instructions Recorded Confirmed carbidopa ER 50 mg-levodopa 200 mg 2 tablet PO BID 10/05/19 11/12/20 tablet,extended release hydrochlorothiazide 12.5 mg tablet 12.5 mg PO DAILY 10/05/19 11/12/20 quetiapine 25 mg tablet 25 mg PO QPM tablet 10/05/19 11/12/20 acetaminophen 650 mg PO Q12H 11/12/20 11/12/20 cholecalciferol (vitamin D3) 25 mcg PO QMWF 11/12/20 11/12/20 [Vitamin D3] cyanocobalamin (vitamin B-12) 1,000 mcg PO DAILY 11/12/20 11/12/20 [Vitamin B-12] docusate sodium 100 mg PO BID 11/12/20 11/12/20 famotidine 20 mg PO DAILY 11/12/20 11/12/20 ferrous sulfate 325 mg PO DAILY 11/12/20 11/12/20 melatonin 2 mg PO HS PRN 11/12/20 11/12/20 quetiapine 50 mg PO BID 11/12/20 11/12/20 ropinirole 4 mg PO QID 11/12/20 11/12/20 sennosides [senna] 8.6 mg PO BID 11/12/20 11/12/20 sertraline 25 mg PO DAILY 11/12/20 11/12/20 Allergies Allergy/AdvReac Type Severity Reaction Status Date / Time No Known Allergies Allergy Verified 01/18/21 15:37 Review of Systems Review of Systems: Narrative: CONSTITUTIONAL: Denies fever, chills, or sweats. EYES: Denies visual changes, redness, or discharge. ENT: Denies rhinorrhea, congestion, sore throat, or otalgia. CARDIOVASCULAR: Denies chest pain, palpitations, or edema. RESPIRATORY: Denies cough or dyspnea. GASTROINTESTINAL: Denies abdominal pain, nausea, vomiting, or diarrhea. Patient reports spitting up GENITOURINARY: Denies dysuria or hematuria. SKIN: Denies rash or itching. MUSCULOSKELETAL: Denies back pain, joint pain, or myalgia. NEUROLOGIC: Denies headache, numbness, dizziness, or weakness. PSYCHIATRIC: Denies anxiety or depression. All systems reviewed & are unremarkable except as noted in HPI and below (ROS) PMFSH Past Medical History Medical History Constipation Essential hypertension Insomnia Iron deficiency anemia Parkinsons disease Surgical History Surgical History History of bilateral knee replacement History of right shoulder replacement Family History Family History Sibling Family history of cardiovascular disease Social History Social History Social History: Daughter lives locally Smoking status: Never smoker Second hand tobacco smoke exposure: No Alcohol intake: never Substance use: never Additional living arrangements comments: [facility] Gender identity (if verbalized by the patient): Male Spiritual care concerns: No Exam Narrative: Exam Narrative: GENERAL: Well-appearing, well-nourished, and in no acute distress. HEAD: Normocephalic, atraumatic. EYES: PERRLA and EOMI. ENT: Nares clear, no rhinorrhea or epistaxis. Mucous membranes moist. NECK: Supple. CHEST: Clear to auscultation. No respiratory distress. HEART: Regular rate and rhythm. No murmur heard. Normal peripheral pulses. ABDOMEN: Soft, nontender, nondistended, normal active bowel sounds. EXTREMITIES: Normal range of motion. No edema. SKIN: Warm, dry, no rash. NEURO: No focal deficits. Alert and oriented x3. Diffuse weakness PSYCH: Normal mood and affect. Course Course Emergency Course: 1654 -reeval
[2021-01-18 15:33] VITALS: BP 129/74; PULSE 72; RESP 20; TEMP 36.3; O2SAT 100
[2021-01-18] MEDS: SODIUM CHLORIDE 0.9% IV 500 ML 999 ML IV CONT ×2 (15:58→17:00)
[2021-01-18 16:03] LABS: Basophils Percent Auto 0.6 % (0.2-1.2); Eosinophils Absolute Auto 0.2 K/mm3 (0-0.3); Eosinophils Percent Auto 3.4 % (0-4.4); Hematocrit 34.6 % (42.0-52.0); Hemoglobin 11.5 g/dL (14.0-18.0); Immature Granulocyte Absolute 0.01 K/mm3 (0.00-0.031); Immature Granulocyte Percent A 0.2 % (0-0.5); Lymphocytes Absolute Auto 1.18 K/mm3 (0.9-3.2); Lymphocytes Percent Auto 18.2 % (18.3-44.2); Mean Corpuscular HGB Conc 33.2 g/dl (32-36); Mean Corpuscular Hemoglobin 33.9 pg (26-34); Mean Corpuscular Volume 102.1 fl (80-100); Mean Platelet Volume 8.7 fl (7.4-10.4); Monocytes Absolute Auto 0.4 K/mm3 (0.1-0.6); Monocytes Percent Auto 6.6 % (2.6-8.5); Neutrophils Absolute Auto 4.6 K/mm3 (1.3-6.7); Platelet Count Result 177 k/mm3 (150-375); Red Blood Count 3.39 M/mm3 (4.6-6.20); Red Cell Distribution Width 14.4 % (11.5-14.5); White Blood Count 6.5 K/mm3 (4.5-10.0)
[2021-01-18 16:18] LABS: Alanine Aminotransferase 6 U/L (4-50); Albumin Level 3.8 g/dL (3.5-5.1); Alkaline Phosphatase 116 U/L (38-126); Anion Gap 4 mmol/L (8-16); Aspartate Amino Transferase 31 U/L (17-59); Bilirubin,Total 0.8 mg/dL (0.2-1.3); Blood Urea Nitrogen 35 mg/dL (9-20); Carbon Dioxide 27 mmol/L (22-30); Chloride 109 mmol/L (98-107); Estimated Glomerular Filt Rate > 60; Glucose 111 mg/dL (75-110); Potassium 4.2 mmol/L (3.4-5.0); Sodium 140 mmol/L (137-145)
[2021-01-18 16:40] VITALS: BP 97/54; PULSE 63; RESP 16; O2SAT 96
[2021-01-18 17:29] VITALS: BP 125/65; PULSE 59; RESP 15; O2SAT 96
[2021-01-18 18:10] VITALS: BP 149/69; PULSE 72; RESP 16; O2SAT 96
== END 2021-01-18 20:55 ==
PROVIDERS: Emergency Provider Emergency Medicine; PCP Family Medicine
DX: E86.0 Dehydration (principal); I10 Essential (primary) hypertension; G20 Parkinson's disease; D50.9 Iron deficiency anemia, unspecified; Z96.653 Presence of artificial knee joint, bilateral; Z96.611 Presence of right artificial shoulder joint
CPT/HCPCS: 36415; 80053; 85025; 96360; 96361; 99283; J7040

== ENCOUNTER 2021-02-14 10:15 | Outpatient (CLI) | payer MEDICARE, SELFPAY ==
--- NOTE | ~2021-02-14 | US_ITS ---
EXAMINATION: US abdomen complete EXAM DATE: 02/14/2021 11:00 INDICATION: R74.8 - Abnormal levels of other serum enzymes. TECHNIQUE: Multiple grayscale and Doppler images of the complete abdomen were obtained (by a technolo gist who performed the scan) and subsequently reviewed. There is no prior study for comparison. FINDINGS: The abdominal aorta is normal in caliber with mild arteriosclerotic disease. Visualized portion IVC is patent. Pancreas not well visualized due to overlying bowel gas. Acoustic window for evaluating liver is also limited. The liver has normal echogenicity and contour. There are no focal liver lesions identified. There is no evidence of intrahepatic biliary duct dilation. Portal venous flow was seen in the hepatopedal , normal direction and has normal Doppler waveform. Common bile duct measures 4 mm, which is normal. The gallbladder wall is normal in thickness, with ex pected amount of distention. No sonographic evidence of pericholecystic fluid. There is no cholelit hiases. Technologist performing exam reports patient did not demonstrate sonographic Francis's sign. Please note that this sign is less reliable in patients who have received pain medication. Right kidney: There is normal contour and echogenicity. It measures 9.9 x 4.7 x 6.0 centimeters. T here are no focal renal lesions identified. There is no hydronephrosis. Left kidney: There is normal contour and echogenicity. It measures 8.9 x 4.5 x 5.3 centimeters. Ane choic lesion consistent with cyst measuring 4 cm. There is no hydronephrosis. There are splenic calcified granulomata, but spleen is otherwise morphologically normal. It measures 10 cm. IMPRESSION: No clinically significant findings. Reviewed, dictated and finalized at location A.
== END 2021-02-14 10:16 | disposition home or self-care (01) ==
LOC: ANHIMG 10:18
PROVIDERS: PCP Family Medicine; Visit Provider Internal Medicine Gastroenterology
DX: R74.8 Abnormal levels of other serum enzymes (principal)
CPT/HCPCS: 76700

== ENCOUNTER 2021-05-19 15:16 | Emergency (ER) | payer MEDICARE, SELFPAY ==
[2021-05-19] VITALS (13 sets, daily range): BP systolic 139–164; BP diastolic 64–79; PULSE 53–77; RESP 5–18; TEMP 35.8; O2SAT 99–100
--- NOTE | ~2021-05-19 | CT_ITS ---
EXAMINATION: CT cervical spine wo con DATE: 05/19/2021 16:49 INDICATION: Head injury. TECHNIQUE: Computed tomography (CT) of the cervical spine was performed without intravenous contrast. Automated exposure control and iterative reconstruction technique were employed. The dose-length pro duct was 354.11 mGy-cm. COMPARISON: CT cervical spine 11/11/2020 FINDINGS: There is 2 mm anterolisthesis of C5 on C6. Vertebral body heights are normal. There is mode rately decreased disc height at C3-C4, mildly decreased disc height at C4-C5, and severely decreased disc height at C5-C6 and C6-C7. The following disc levels are specifically discussed: C2-C3: There is no uncovertebral joint osteoarthritis. There is severe bilateral facet joint osteoart hritis. There is mild left neural foraminal stenosis. There is no central canal stenosis. C3-C4: There is severe bilateral uncovertebral joint osteoarthritis. There is severe bilateral facet joint osteoarthritis. There is mild bilateral neural foraminal stenosis. There is no central canal st enosis. C4-C5: There is mild bilateral uncovertebral joint osteoarthritis. There is severe bilateral facet asia int osteoarthritis. There is mild bilateral neural foraminal stenosis. There is no central canal sten osis. C5-C6: There is severe right and moderate left uncovertebral joint osteoarthritis. There is severe bi lateral facet joint osteoarthritis. There is mild bilateral neural foraminal stenosis. There is no ce ntral canal stenosis. C6-C7: There is severe right and mild left uncovertebral joint osteoarthritis. There is severe bilate ral facet joint osteoarthritis. There is mild bilateral neural foraminal stenosis. There is no centra l canal stenosis. C7-T1: There is no uncovertebral joint osteoarthritis. There is moderate bilateral facet joint osteoa rthritis. There is no neural foraminal stenosis. There is no central canal stenosis. IMPRESSION: 1. No fracture. 2. Severe cervical spondylosis. Reviewed, dictated and finalized at location A.
--- NOTE | ~2021-05-19 | CT_ITS ---
EXAMINATION: CT brain wo con DATE: 05/19/2021 16:49 INDICATION: Head injury. TECHNIQUE: Computed tomography (CT) of the head was performed without intravenous contrast. The mA wa s adjusted according to patient size. Iterative reconstruction technique was employed. The dose-lengt h product was 681.00 mGy-cm. COMPARISON: Head CT 11/11/2020 FINDINGS: There is no intracranial hemorrhage, acute infarction, or abnormal intracranial mass lesion . The ventricles are normal in size. There is mucosal thickening in the paranasal sinuses. There are likely changes of ocular lens replacement surgeries. The mastoid air cells are normal. There is exten sive dental disease. IMPRESSION: 1. Normal brain. 2. Extensive dental disease. Reviewed, dictated and finalized at location A.
--- NOTE | 2021-05-19 16:27 | ED.FALL ---
HPI - Fall General Chief Complaint: Fall Stated Complaint: fall Time Seen by Provider: 05/19/21 16:01 Source: patient Mode of arrival: ambulatory Limitations: no limitations History of Present Illness HPI Narrative: Patient is an 81-year-old male who presents by EMS after fall at assisted living facility. Patient reports walking with walker and slipped, falling hitting head on toilet paper owen. Patient has hematoma to posterior scalp as well as abrasion the right shoulder. Patient denies LOC, denies pain at this time. Patient in cervical collar during assessment. He denies taking any [id number] medications for pain prior to arrival. MD complaint: fall Related Data Home Medications Medication Instructions Recorded Confirmed carbidopa ER 50 mg-levodopa 200 mg 2 tablet PO BID 10/05/19 02/05/21 tablet,extended release hydrochlorothiazide 12.5 mg tablet 12.5 mg PO DAILY 10/05/19 02/05/21 quetiapine 25 mg tablet 25 mg PO QPM tablet 10/05/19 02/05/21 acetaminophen 650 mg PO Q12H 11/12/20 02/05/21 cholecalciferol (vitamin D3) 25 mcg PO QMWF 11/12/20 02/05/21 [Vitamin D3] cyanocobalamin (vitamin B-12) 1,000 mcg PO DAILY 11/12/20 02/05/21 [Vitamin B-12] docusate sodium 100 mg PO BID 11/12/20 02/05/21 famotidine 20 mg PO DAILY 11/12/20 02/05/21 ferrous sulfate 325 mg PO DAILY 11/12/20 02/05/21 melatonin 2 mg PO HS PRN 11/12/20 02/05/21 quetiapine 50 mg PO BID 11/12/20 02/05/21 ropinirole 4 mg PO QID 11/12/20 02/05/21 sennosides [senna] 8.6 mg PO BID 11/12/20 02/05/21 sertraline 25 mg PO DAILY 11/12/20 02/05/21 Allergies Allergy/AdvReac Type Severity Reaction Status Date / Time No Known Allergies Allergy Verified 02/05/21 14:23 Review of Systems Review of Systems: Narrative: CONSTITUTIONAL: Denies fever, chills, or sweats. EYES: Denies visual changes, redness, or discharge. ENT: Denies rhinorrhea, congestion, sore throat, or otalgia. CARDIOVASCULAR: Denies chest pain, palpitations, or edema. RESPIRATORY: Denies cough or dyspnea. GASTROINTESTINAL: Denies abdominal pain, nausea, vomiting, or diarrhea. GENITOURINARY: Denies dysuria or hematuria. SKIN: Abrasion to shoulder, hematoma to head MUSCULOSKELETAL: Denies back pain, joint pain, or myalgia. NEUROLOGIC: Denies headache, numbness, dizziness, or weakness. PSYCHIATRIC: Denies anxiety or depression. [facility] Past Medical History Medical History Constipation Essential hypertension Insomnia Iron deficiency anemia Parkinsons disease Surgical History Surgical History History of bilateral knee replacement History of right shoulder replacement Family History Family History Sibling Family history of cardiovascular disease Social History Social History Social History: Daughter lives locally Smoking status: Never smoker Second hand tobacco smoke exposure: No Alcohol intake: never Substance use: never Additional living arrangements comments: [facility] Gender identity (if verbalized by the patient): Male Spiritual care concerns: No Comments At the time of signature, I have reviewed and agree with nursing past medical, surgical, social, and family history unless otherwise noted. Please see nursing chart for further information. There is no relevant family history pertinent to the presenting complaint. Exam Narrative: Exam Narrative: GENERAL: Well-appearing, well-nourished, and in no acute distress. HEAD: Normocephalic, atraumatic. EYES: EOMI. No redness or drainage. Conjunctiva are normal. ENT: Mucous membranes pink and moist. Nares clear. No rhinorrhea. NECK: AROM. Supple. No lymphadenopathy. No palpable pain or step-off CHEST: No respiratory distress. Clear to auscultation. HEART: Regula
== END 2021-05-19 17:44 ==
PROVIDERS: Emergency Provider Nurse Practitioner; PCP Nurse Practitioner Family
DX: S00.03XA Contusion of scalp, initial encounter (principal); S40.211A Abrasion of right shoulder, initial encounter; I10 Essential (primary) hypertension; D50.9 Iron deficiency anemia, unspecified; G20 Parkinson's disease; Z96.653 Presence of artificial knee joint, bilateral; Z96.611 Presence of right artificial shoulder joint; M47.812 Spondylosis without myelopathy or radiculopathy, cervical region; W01.198A Fall on same level from slipping, tripping and stumbling with subsequent striking against other object, initial encounter
CPT/HCPCS: 70450; 72125; 99284

== ENCOUNTER 2021-06-27 22:37 | Emergency (ER) | payer MEDICARE, SELFPAY ==
--- NOTE | ~2021-06-27 | XR_ITS ---
EXAMINATION: XR shoulder RT min 2V DATE: 06/28/2021 00:20 INDICATION: Shoulder pain post fall TECHNIQUE: AP internally and externally rotated, AP oblique externally rotated and transscapular Y vi ews of the right shoulder were obtained. COMPARISON: And right rib fractures dated 11/11/2020 FINDINGS: 10 degree posterolateral angulation of a nondisplaced oblique fracture at the surgical neck of the pr oximal right humerus. Chronic cephalad migration of the humeral head with respect to the glenoid with narrowing of the subacromial space suggesting at least partial rotator cuff tear. Suture anchors see n at the greater tuberosity consistent with a prior rotator cuff repair. No other acute fractures emely ntified. There are multiple chronic rib fractures in varying stages of healing. Mild glenohumeral and acromioclavicular osteoarthritis. Prominent inferiorly directed osteophytes at the lateral head of t he clavicle. Large calcified mediastinal lymph nodes consistent with old granulomatous disease. IMPRESSION: 1 part fracture at the surgical neck of the proximal right humerus. Reviewed, dictated and finalized at location A.
--- NOTE | ~2021-06-27 | CT_ITS ---
EXAMINATION: CT brain wo con DATE: 06/28/2021 00:10 INDICATION: Fall with head injury. TECHNIQUE: Computed tomography (CT) of the head was performed without intravenous contrast. Sagittal and coronal reconstructions were performed. The mA was adjusted according to patient size. Iterative reconstruction technique was employed. The dose-length product was 681.00 mGy-cm. COMPARISON: head CT dated 05/19/2021 FINDINGS: No fracture. No acute intracranial hemorrhage, acute infarction or abnormal extra axial fluid collect ion. Symmetric prominence of the sulci consistent with moderate age-appropriate diffuse cerebral volu me loss. Ventricles are normal and symmetric. No mass/mass effect. Changes of bilateral intraocular l ens replacement. The orbits and mastoid air cells are normal. Moderate mucosal thickening in the jeffrey ateral frontal, ethmoid and maxillary sinuses. Intracranial calcified cerebral atherosclerosis is not ed. IMPRESSION: 1. Normal aging brain. No fracture or acute intracranial process. Reviewed, dictated and finalized at location A.
--- NOTE | ~2021-06-27 | CT_ITS ---
EXAMINATION: CT cervical spine wo con DATE: 06/28/2021 00:10 INDICATION: Neck pain TECHNIQUE: Computed tomography (CT) of the cervical spine was performed without intravenous contrast. The dose-length product (DLP) was 350.89 mGy-cm. Automated exposure control and iterative reconstruc tion technique were employed. COMPARISON: 05/19/2021 FINDINGS: There are 2 mm of unchanged anterolisthesis of C5 on C6. There is severe loss of interverte bral disc space height at C5-6 and C6-7. Moderate loss of intervertebral disc space height is present at C4-5. There is no fracture. The odontoid is intact. Small degenerative osteophytes project from t he anterior endplates of multiple vertebral bodies. There is severe multilevel facet and uncovertebra l joint osteoarthritis throughout the cervical spine. IMPRESSION: 1. Severe cervical spondylosis without acute findings or significant interval change. Reviewed, dictated and finalized at location A. IMPRESSION: 1. Severe cervical spondylosis without acute findings or significant interval c lien.
[2021-06-27 22:38] VITALS: BP 146/88; PULSE 88; RESP 18; TEMP 36.7; O2SAT 100
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
[2021-06-28 02:11] VITALS: BP 140/80; PULSE 72; RESP 18; O2SAT 100
[2021-06-28 02:34] VITALS: BP 142/70; PULSE 84; RESP 18; O2SAT 100
== END 2021-06-28 02:35 ==
PROVIDERS: Emergency Provider Emergency Medicine; PCP Nurse Practitioner Family
DX: S42.211A Unspecified displaced fracture of surgical neck of right humerus, initial encounter for closed fracture (principal); S09.90XA Unspecified injury of head, initial encounter; I10 Essential (primary) hypertension; G20 Parkinson's disease; D50.9 Iron deficiency anemia, unspecified; Z96.653 Presence of artificial knee joint, bilateral; M47.812 Spondylosis without myelopathy or radiculopathy, cervical region; W03.XXXA Other fall on same level due to collision with another person, initial encounter
CPT/HCPCS: 70450; 72125; 73030; 99284; A4565

== ENCOUNTER 2021-06-29 10:56 | Emergency (ER) | payer MEDICARE, SELFPAY ==
--- NOTE | ~2021-06-29 | XR_ITS ---
EXAMINATION: XR elbow RT min 3V DATE: 06/29/2021 12:47 INDICATION: Right elbow pain and limited range of motion post fall TECHNIQUE: Anteroposterior, oblique and lateral views of the right elbow were obtained. COMPARISON: 11/11/2020 FINDINGS: Alignment is normal. No fracture or joint effusion. Mild osteoarthritis at the right elbow with mild nonuniform joint space narrowing and tiny marginal osteophytes. Again seen are small calcifications i n the soft tissues alongside the medial and lateral epicondyles most likely related to chronic enthes opathy or sequela of old trauma. Soft tissue swelling about the lateral side of the elbow. IMPRESSION: 1. Mild osteoarthritis at the right elbow. No joint effusion or acute osseous abnormality. Reviewed, dictated and finalized at location A. IMPRESSION: 1. Mild osteoarthritis at the right elbow. No joint effusion or acute osseous a bnormality.
--- NOTE | ~2021-06-29 | XR_ITS ---
EXAMINATION: XR shoulder RT min 2V DATE: 06/29/2021 12:47 INDICATION: Right shoulder pain, limited range of motion and deformity post fall TECHNIQUE: AP and transscapular Y views of the right shoulder were obtained. COMPARISON: 06/27/2021 FINDINGS: Diffuse osteopenia. Again seen is a minimally displaced oblique fracture at the surgical neck of the proximal right humerus with unchanged mild posterior displacement. There is a new slightly more dista l oblique fracture across the proximal most diaphysis with one half shaft width lateral and one third shaft width anterior displacement and 25 degree medial and 10 degrees posterior angulation. Unchanged cephalad migration of the humeral head with respect to the glenoid consistent with rotator cuff disease. Suture anchors seen at the humeral head consistent with prior rotator cuff repair. Mild glenohumeral and acromioclavicular osteoarthritis with prominent inferiorly directed osteophyte at t he lateral head of the clavicle. Again seen are several chronic right rib fractures.This most portion of the right lung is clear. Soft tissue swelling about the right shoulder. IMPRESSION: New displaced and angulated oblique fracture at the proximal right humeral diaphysis located approxim ately 2 cm distal to the recent displaced oblique fracture at the surgical neck which remains unchang ed with minimal displacement and mild angulation. Reviewed, dictated and finalized at location A. IMPRESSION: New displaced and angulated oblique fracture at the proximal right humeral diap hysis located approximately 2 cm distal to the recent displaced oblique fractur e at the surgical neck which remains unchanged with minimal displacement and mi ld angulation.
[2021-06-29 10:57] VITALS: BP 109/57; PULSE 69; RESP 18; TEMP 36.4; O2SAT 97
[2021-06-29 12:53] VITALS: BP 155/70; PULSE 64; RESP 16; O2SAT 100
[2021-06-29] MEDS: MORPHINE SULFATE (*CRX) 4 MG/ML INJ IV PUSH (13:17)
[2021-06-29 13:21] VITALS: BP 159/82; PULSE 76; RESP 15; O2SAT 100
--- NOTE | 2021-06-29 14:00 | ED.FALL ---
HPI - Fall General Chief Complaint: Fall Stated Complaint: fall Time Seen by Provider: 06/29/21 11:59 History of Present Illness HPI Narrative: Patient is an 81-year-old male who presents ER with right arm pain. Patient fell on 06/27/2021 and fractured his proximal humerus. Have is nondisplaced. He was placed in a sling and sent back to his facility. He reports he felt like his arm was getting better so he attempted to get up on his own without help and then fell directly onto his right arm again. He now has pain in his elbow and also in his proximal humerus. He received morphine by EMS. He has no new numbness or tingling. He did not lose consciousness or strike his head. Related Data Home Medications Medication Instructions Recorded Confirmed carbidopa ER 50 mg-levodopa 200 mg 2 tablet PO BID 10/05/19 02/05/21 tablet,extended release hydrochlorothiazide 12.5 mg tablet 12.5 mg PO DAILY 10/05/19 02/05/21 acetaminophen 650 mg PO Q12H 11/12/20 02/05/21 cholecalciferol (vitamin D3) 25 mcg PO QMWF 11/12/20 02/05/21 [Vitamin D3] cyanocobalamin (vitamin B-12) 1,000 mcg PO DAILY 11/12/20 02/05/21 [Vitamin B-12] docusate sodium 100 mg PO BID 11/12/20 02/05/21 famotidine 20 mg PO DAILY 11/12/20 02/05/21 melatonin 2 mg PO HS PRN 11/12/20 02/05/21 quetiapine 100 mg PO BID 11/12/20 02/05/21 ropinirole 4 mg PO QID 11/12/20 02/05/21 sennosides [senna] 8.6 mg PO BID 11/12/20 02/05/21 sertraline 25 mg PO DAILY 11/12/20 02/05/21 nystatin unit VAGINAL 06/29/21 polysaccharide iron complex 150 mg PO DAILY 06/29/21 06/29/21 [iFerex 150] Allergies Allergy/AdvReac Type Severity Reaction Status Date / Time No Known Allergies Allergy Verified 06/29/21 11:18 Review of Systems Review of Systems: All systems reviewed & are unremarkable except as noted in HPI and below Constitutional: Constitutional: Denies chills and Denies fever(s) Gastrointestinal: Gastrointestinal: Denies nausea and Denies vomiting Musculoskeletal: Musculoskeletal: Reports arthralgias, Reports joint swelling and Reports muscle cramps Neurologic: Denies syncope, Denies headache(s), Denies focal weakness and Denies numbness PMFSH Past Medical History Medical History Constipation Essential hypertension Insomnia Iron deficiency anemia Parkinsons disease Surgical History Surgical History History of bilateral knee replacement History of right shoulder replacement Family History Family History Sibling Family history of cardiovascular disease Social History Social History Social History: Daughter lives locally Smoking status: Never smoker Second hand tobacco smoke exposure: No Alcohol intake: never Substance use: never Additional living arrangements comments: [facility] Gender identity (if verbalized by the patient): Male Spiritual care concerns: No Exam Narrative: GENERAL: Chronically ill-appearing, well-nourished, and in no acute distress. HEAD: Normocephalic, atraumatic. ENT: Mucous membranes moist. CHEST: Clear to auscultation. No respiratory distress. HEART: Regular rate and rhythm. Normal peripheral pulses. ABDOMEN: Soft, nontender, nondistended. Large left inguinal hernia going into the scrotum. Nontender. Does not stay reduced. EXTREMITIES: Focused exam the right upper extremity reveals tenderness of the mid and proximal aspect of the humerus with mild discomfort at the shoulder. Will not range due to pain. Function be felt shifting. No reproducible tenderness elbow or deformity at that area. Patient has no range of motion at the wrist and in the fingers. Neurovascular intact in the right upper extremity. SKIN: Warm, dry, no rash. NEURO: Alert and oriented x3. PSYCH: Normal m
[2021-06-29 16:00] LABS: Vitamin D 25 Hydroxy 33.6 ng/mL
== END 2021-06-29 15:35 ==
PROVIDERS: Emergency Provider Emergency Medicine; PCP Nurse Practitioner Family
DX: S49.091A Other physeal fracture of upper end of humerus, right arm, initial encounter for closed fracture (principal); S42.211D Unspecified displaced fracture of surgical neck of right humerus, subsequent encounter for fracture with routine healing; I10 Essential (primary) hypertension; G20 Parkinson's disease; D50.9 Iron deficiency anemia, unspecified; K40.90 Unilateral inguinal hernia, without obstruction or gangrene, not specified as recurrent; Z96.653 Presence of artificial knee joint, bilateral; Z96.611 Presence of right artificial shoulder joint; M19.021 Primary osteoarthritis, right elbow; Z79.899 Other long term (current) drug therapy; W18.30XA Fall on same level, unspecified, initial encounter; W19.XXXD Unspecified fall, subsequent encounter
CPT/HCPCS: 36415; 73030; 73080; 82306; 96374; 99284; J2270

== ENCOUNTER 2021-08-08 14:57 | Emergency (ER) | payer MEDICARE, SELFPAY ==
--- NOTE | ~2021-08-08 | CT_ITS ---
EXAMINATION: CT brain wo con INDICATION: Head injury COMPARISON: 06/27/2021 TECHNIQUE: Standard unenhanced head CT. The dose-length product (DLP) was 605.33 mGy-cm. The mA was a djusted according to patient size. Iterative reconstruction technique was employed. FINDINGS: There is no acute intraparenchymal hemorrhage. No evidence of mass lesion. No evidence of a cute infarction. There is mild periventricular and subcortical hypodensity probably related to small vessel ischemic disease. There is mild prominence of the sulci and ventricles related to cerebral atr ophy. Intracranial calcified cerebral atherosclerosis is noted. There are no extra-axial collections. There is no mass effect or midline shift. Changes in the globes are likely from ocular lens surgery. There is mild mucosal thickening of the paranasal sinuses. IMPRESSION: 1. No acute intracranial abnormality. 2. Age related findings. Reviewed, dictated and finalized at location B.
--- NOTE | 2021-08-08 14:58 | ECG_ITS ---
Measurements Intervals [place] Rate: 71 P: 36 MD: 197 QRS: -23 QRSD: 97 T: 25 QT: 369 QTc: 403 Interpretive Statements SINUS RHYTHM BORDERLINE T WAVE ABNORMALITY- ANTEROLAT/INF LEADS BASELINE WANDER- V4 BORDERLINE ECG Electronically Signed On 08-08-2021 19:05:13 CDT by Adeel Burks D.O.
[2021-08-08 14:59] VITALS: BP 112/61; PULSE 72; RESP 18; TEMP 36.1; O2SAT 98
--- NOTE | 2021-08-08 15:32 | PC.NURSE ---
Dr. Garcia at bedside for pt assessment.
[2021-08-08 15:47] LABS: Basophils Percent Auto 0.4 % (0.2-1.2); Eosinophils Absolute Auto 0.6 K/mm3 (0-0.3); Eosinophils Percent Auto 7.3 % (0-4.4); Hematocrit 32.1 % (42.0-52.0); Hemoglobin 10.3 g/dL (14.0-18.0); Immature Granulocyte Absolute 0.04 K/mm3 (0.00-0.031); Immature Granulocyte Percent A 0.5 % (0-0.5); Lymphocytes Absolute Auto 1.47 K/mm3 (0.9-3.2); Lymphocytes Percent Auto 18.8 % (18.3-44.2); Mean Corpuscular HGB Conc 32.1 g/dl (32-36); Mean Corpuscular Hemoglobin 32.9 pg (26-34); Mean Corpuscular Volume 102.6 fl (80-100); Mean Platelet Volume 8.3 fl (7.4-10.4); Monocytes Absolute Auto 0.6 K/mm3 (0.1-0.6); Monocytes Percent Auto 7.3 % (2.6-8.5); Neutrophils Absolute Auto 5.1 K/mm3 (1.3-6.7); Neutrophils Percent Auto 65.7 % (45.5-73.1); Platelet Count Result 218 k/mm3 (150-375); Red Blood Count 3.13 M/mm3 (4.6-6.20); Red Cell Distribution Width 14.5 % (11.5-14.5); White Blood Count 7.8 K/mm3 (4.5-10.0)
[2021-08-08] MEDS: SODIUM CHLORIDE 0.9% IV 1,000 ML 999 ML IV CONT (15:52)
[2021-08-08 15:58] LABS: Anion Gap 4 mmol/L (8-16); Blood Urea Nitrogen 26 mg/dL (9-20); Calcium 8.8 mg/dL (8.4-10.2); Carbon Dioxide 27 mmol/L (22-30); Chloride 107 mmol/L (98-107); Estimated CRCL calculation 50 ml/min; Estimated Glomerular Filt Rate > 60; Glucose 112 mg/dL (65-110); Sodium 138 mmol/L (137-145)
[2021-08-08 16:40] VITALS: BP 136/80; PULSE 66; RESP 15; O2SAT 97
--- NOTE | 2021-08-08 18:39 | ED.GENADULT ---
HPI - General Adult General Chief complaint: Dizziness Stated complaint: fall Time Seen by Provider: 08/08/21 15:29 History of Present Illness HPI narrative: Patient is an 81-year-old male who presents ER status post fall. Reports he went from sitting to standing and got dizzy. This caused him to fall and he struck his head. No loss consciousness. He does have an abrasion to the right temporal region. He takes carbidopa levodopa for Parkinson's. He is not on any blood thinners. Denies change in vision or hearing. No nausea or vomiting. Related Data Home Medications Medication Instructions Recorded Confirmed carbidopa ER 50 mg-levodopa 200 mg 2 tablet PO BID 10/05/19 02/05/21 tablet,extended release hydrochlorothiazide 12.5 mg tablet 12.5 mg PO DAILY 10/05/19 02/05/21 acetaminophen 650 mg PO Q12H 11/12/20 02/05/21 cholecalciferol (vitamin D3) 25 mcg PO QMWF 11/12/20 02/05/21 [Vitamin D3] cyanocobalamin (vitamin B-12) 1,000 mcg PO DAILY 11/12/20 02/05/21 [Vitamin B-12] docusate sodium 100 mg PO BID 11/12/20 02/05/21 famotidine 20 mg PO DAILY 11/12/20 02/05/21 melatonin 2 mg PO HS PRN 11/12/20 02/05/21 quetiapine 100 mg PO BID 11/12/20 02/05/21 ropinirole 4 mg PO QID 11/12/20 02/05/21 sennosides [senna] 8.6 mg PO BID 11/12/20 02/05/21 sertraline 25 mg PO DAILY 11/12/20 02/05/21 nystatin unit VAGINAL 06/29/21 polysaccharide iron complex 150 mg PO DAILY 06/29/21 06/29/21 [iFerex 150] Allergies Allergy/AdvReac Type Severity Reaction Status Date / Time No Known Allergies Allergy Verified 08/08/21 15:33 Review of Systems Review of Systems: All systems reviewed & are unremarkable except as noted in HPI and below Constitutional: Constitutional: Denies chills, Denies fever(s) and Denies weakness ENT: Denies nasal congestion and Denies sore throat Cardiovascular: Cardiovascular: Denies chest pain, Denies rapid heart rate and Denies radiating jaw, neck or arm pain Gastrointestinal: Gastrointestinal: Denies nausea and Denies vomiting Neurologic: Denies dizziness, Denies headache(s), Denies focal weakness and Denies numbness PMFSH Past Medical History Medical History Constipation Essential hypertension Insomnia Iron deficiency anemia Parkinsons disease Surgical History Surgical History History of bilateral knee replacement History of right shoulder replacement Family History Family History Sibling Family history of cardiovascular disease Social History Social History Social History: Daughter lives locally Smoking status: Never smoker Second hand tobacco smoke exposure: No Alcohol intake: never Substance use: never Additional living arrangements comments: [facility] Gender identity (if verbalized by the patient): Male Spiritual care concerns: No Exam Narrative: GENERAL: Chronically ill-appearing, well-nourished, and in no acute distress. HEAD: Normocephalic, right temporal abrasion EYES: PERRL and EOMI. ENT: Mucous membranes moist. CHEST: Clear to auscultation. No respiratory distress. HEART: Regular rate and rhythm. Normal peripheral pulses. EXTREMITIES: Normal range of motion. No edema. NEURO: Alert and oriented x3. PSYCH: Normal mood and affect. Course Course Emergency Course: Patient hydrated. Informed results. Discharge home. Vital Signs Vital signs: Vital Signs Temperature 97 F L 08/08/21 14:59 Pulse Rate 72 08/08/21 14:59 Respiratory Rate 18 08/08/21 14:59 Blood Pressure 112/61 08/08/21 14:59 Pulse Oximetry 98 08/08/21 14:59 Temperature 97 F L 08/08/21 14:59 Pulse Rate 85 08/08/21 18:50 Respiratory Rate 18 08/08/21 18:50 Blood Pressure 156/79 H 08/08/21 18:50 Pulse Oximetry 99
[2021-08-08 18:50] VITALS: BP 156/79; PULSE 85; RESP 18; O2SAT 99
== END 2021-08-08 19:00 ==
PROVIDERS: Emergency Medicine; Emergency Provider Emergency Medicine; PCP Nurse Practitioner Family
DX: S00.81XA Abrasion of other part of head, initial encounter (principal); I10 Essential (primary) hypertension; D50.9 Iron deficiency anemia, unspecified; G20 Parkinson's disease; Z96.653 Presence of artificial knee joint, bilateral; Z96.611 Presence of right artificial shoulder joint; W01.198A Fall on same level from slipping, tripping and stumbling with subsequent striking against other object, initial encounter
CPT/HCPCS: 36415; 70450; 80048; 85025; 93005; 96360; 99284; J7030

== ENCOUNTER 2021-08-24 09:38 | Emergency (ER) | payer MEDICARE, SELFPAY ==
--- NOTE | ~2021-08-24 | XR_ITS ---
EXAMINATION: XR shoulder RT min 2V EXAM DATE: 08/24/2021 10:50 INDICATION: Worsening right shoulder pain, recent fracture. TECHNIQUE: 3 projections of the right shoulder. Comparison is made to prior examination from . FINDINGS: There is right humeral neck fracture with some small comminuted fragments. There is exuber ant callus formation overlying the fracture site. The alignment of the fracture has changed compared to previously seen exams. Cannot exclude that there has been recent refracture or change in position. There is about 50% displacement, which appears to be in opposite direction of the most recent prior study. There is right shoulder rotator cuff repair anchor in the humeral head. There is swelling over lying the shoulder soft tissues. There is no shoulder dislocation. Moderate osteoarthritis. Bones americo ear osteopenic. Subacute right 4th 5th, 6th rib fractures. IMPRESSION: Right humeral neck fracture with exuberant callus formation but incomplete solid bone stephen dging and change in alignment, direction of displacement compared to most recent prior study 6 weeks ago. Recent refracture or change in alignment/position is possible. Reviewed, dictated and finalized at location A. IMPRESSION: Right humeral neck fracture with exuberant callus formation but inc omplete solid bone bridging and change in alignment, direction of displacement compared to most recent prior study 6 weeks ago. Recent refracture or change in alignment/position is possible.
[2021-08-24 09:38] VITALS: BP 157/72; PULSE 62; RESP 18; TEMP 36.8; O2SAT 100
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
== END 2021-08-24 12:19 ==
PROVIDERS: Emergency Provider Emergency Medicine; PCP Nurse Practitioner Family
DX: S42.291A Other displaced fracture of upper end of right humerus, initial encounter for closed fracture (principal); I10 Essential (primary) hypertension; G20 Parkinson's disease; Z86.2 Personal history of diseases of the blood and blood-forming organs and certain disorders involving the immune mechanism; X50.9XXA Other and unspecified overexertion or strenuous movements or postures, initial encounter
CPT/HCPCS: 73030; 99284